=== PATIENT | female | born 1960 | race Caucasian/White ===

== ENCOUNTER 2020-03-08 13:59 | Emergency (ER) | payer OTHER ==
[~2020-03-08] VITALS: Ht 154.9 cm; Wt 61.2 kg
[~2020-03-08 13:59] MED LIST: AMOX-426 PO; HUM10VIA SQ; INSU100V9 SQ; LACT1CAP57 PO; LEVO25TA7 PO; LORA-259 PO; METR500T PO
[2020-03-08 14:05] VITALS: BP_SYST 179
[2020-03-08] MEDS ORDERED: NACL 0.9% 1,000 ML IV ONE (14:33)
[2020-03-08 14:44] LABS: BILIRUBIN,URINE NEGATIVE (NEGATIVE); BLOOD, URINE NEGATIVE (NEGATIVE); CLARITY/URINE CLEAR (CLEAR); COLOR,URINE YELLOW (YELLOW); GLUCOSE,URINE NEGATIVE (NEGATIVE); KETONES,URINE NEGATIVE (NEGATIVE); LEUKOCYTE ESTERASE ,URINE NEGATIVE (NEGATIVE); NITRITE, URINE NEGATIVE (NEGATIVE); PROTEIN URINE NEGATIVE (NEGATIVE); UROBILINOGEN,URINE 0.2 (0.2-1.0)
[2020-03-08] MEDS ORDERED: ONDANSETRON HCL 4 MG/2 ML VIAL IVP ONE (14:45)
[2020-03-08] MEDS ORDERED: KETOROLAC TROMETHAMINE 30 MG VIAL IVP ONE (14:45)
[2020-03-08 15:20] LABS: BASOPHILS # (AUTO) 0.2 K/uL (0.0-0.2); BASOPHILS % (AUTO) 1.7 % (0.0-2.0); EOSINOPHILS # (AUTO) 0.3 K/uL (0.0-0.4); EOSINOPHILS % (AUTO) 2.6 % (0.0-4.0); HEMATOCRIT 45.1 % (36-48); HEMOGLOBIN 15.6 g/dL (12.0-16.0); LYMPHOCYTES % (AUTO) 31.2 % (20.5-51.5); MEAN CORPUSCULAR HEMOGLOBIN 32 pg (27-31); MEAN CORPUSCULAR HGB CONC 35 % (32-36); MEAN CORPUSCULAR VOLUME 94 fL (79.0-98.0); MONOCYTES # (AUTO) 0.7 K/uL (0.0-1.0); MONOCYTES % (AUTO) 6.9 % (1.7-9.3); NEUTROPHILS # (AUTO) 5.6 K/uL (1.8-7.7); NEUTROPHILS % (AUTO) 57.6 % (40.0-70.0); PLATELET COUNT (AUTO) 339 K/uL (130-430); RED BLOOD CELL COUNT(AUTO) 4.82 MIL/uL (4.2-6.2); RED CELL DISTRIBUTION WIDTH 12.6 % (9.0-15.0); WHITE BLOOD COUNT (AUTO) 9.7 K/uL (4.8-10.8)
[2020-03-08 15:36] LABS: CALCIUM 9.2 mg/dL (8.4-11.0); CREATININE 1.39 mg/dL (0.55-1.30); POTASSIUM 3.6 mmol/L (3.5-5.1)
[2020-03-08 15:47] LABS: ALBUMIN 4.1 g/dL (3.4-4.8); TOTAL BILIRUBIN 0.4 mg/dL (0.0-1.0)
[2020-03-08] MEDS ORDERED: MECLIZINE HCL 25 MG TABLET (ANITVERT) PO ONE (16:30)
[2020-03-08 17:44] VITALS: BP_SYST 132
== END 2020-03-08 17:44 | disposition home or self-care (01) ==
LOC: SED 13:59
DX: R10.2 Pelvic and perineal pain (principal); R42 Dizziness and giddiness; E03.9 Hypothyroidism, unspecified; E11.9 Type 2 diabetes mellitus without complications; Z79.899 Other long term (current) drug therapy; Z79.4 Long term (current) use of insulin
CPT/HCPCS: 36415; 70450; 76830; 76857; 80053; 81003; 85025; 96361; 96374; 96375; 99285; J1885; J2405; J7030; J8597

== ENCOUNTER 2020-03-26 18:48 | Emergency (ER) | payer OTHER ==
[~2020-03-26] VITALS: Ht 154.9 cm; Wt 61.7 kg
[2020-03-26 18:57] VITALS: BP_SYST 125
--- NOTE | 2020-03-26 19:01 | NUR ---
Ambulated to bed 3
--- NOTE | 2020-03-26 19:39 | NUR ---
pt a&o x4 from home c/o of epigastric abdominal pain radiating right side of abdomen and towards back that started about a week ago. pt rates current pain 6 out of 10, states it comes and goes and has been increasing in occurence. pt reports nausea and loose bowel movements. pt denies vomiting, diarrhea, constipation, problems urinating, fever, chills.
--- NOTE | 2020-03-26 19:40 | NUR ---
ER Dr. Harrell at bedside examining patient.
[2020-03-26] MEDS ORDERED: MORPHINE 2 MG/ML INJ. SYRINGE IVP ONE (19:45)
[2020-03-26] MEDS ORDERED: ONDANSETRON HCL 4 MG/2 ML VIAL IVP ONE ×2 (19:45→21:30)
[2020-03-26] MEDS ORDERED: NACL 0.9% 1,000 ML IV ONE (19:45)
--- NOTE | 2020-03-26 19:54 | NUR ---
# 20 gauge angiocath placed to LFA. Use of asceptic technique. Opsite placed over site. Blood return noted. Blood for lab drawn from site. Flushed with 10 cc of normal saline. No evidence of infiltration noted. Patient tolerated well.
[2020-03-26 20:08] LABS: BASOPHILS # (AUTO) 0.1 K/uL (0.0-0.2); BASOPHILS % (AUTO) 1.1 % (0.0-2.0); EOSINOPHILS # (AUTO) 0.4 K/uL (0.0-0.4); HEMATOCRIT 43.3 % (36-48); LYMPHOCYTES # (AUTO) 3.3 K/uL (1.0-5.5); LYMPHOCYTES % (AUTO) 36.2 % (20.5-51.5); MEAN CORPUSCULAR HEMOGLOBIN 33 pg (27-31); MEAN CORPUSCULAR HGB CONC 35 % (32-36); MEAN CORPUSCULAR VOLUME 94 fL (79.0-98.0); MONOCYTES # (AUTO) 0.8 K/uL (0.0-1.0); MONOCYTES % (AUTO) 8.3 % (1.7-9.3); NEUTROPHILS # (AUTO) 4.6 K/uL (1.8-7.7); NEUTROPHILS % (AUTO) 50.4 % (40.0-70.0); PLATELET COUNT (AUTO) 351 K/uL (130-430); RED BLOOD CELL COUNT(AUTO) 4.62 MIL/uL (4.2-6.2); RED CELL DISTRIBUTION WIDTH 12.6 % (9.0-15.0); WHITE BLOOD COUNT (AUTO) 9.1 K/uL (4.8-10.8)
[2020-03-26 20:10] LABS: BILIRUBIN,URINE NEGATIVE (NEGATIVE); BLOOD, URINE NEGATIVE (NEGATIVE); CLARITY/URINE CLEAR (CLEAR); COLOR,URINE YELLOW (YELLOW); GLUCOSE,URINE NEGATIVE (NEGATIVE); KETONES,URINE NEGATIVE (NEGATIVE); LEUKOCYTE ESTERASE ,URINE NEGATIVE (NEGATIVE); NITRITE, URINE NEGATIVE (NEGATIVE); PROTEIN URINE NEGATIVE (NEGATIVE); UROBILINOGEN,URINE 0.2 (0.2-1.0)
--- NOTE | 2020-03-26 20:10 | NUR ---
patient refused morphine 2mg IVP at this time. aware.
[2020-03-26] MEDS ORDERED: PANTOPRAZOLE SODIUM 40 MG/VIAL (PROTONIX) IVP ONE (20:15)
--- NOTE | 2020-03-26 20:15 | NUR ---
Patient transported to radiology via wheelchair, accompanied by staff.
[2020-03-26 20:22] LABS: CREATININE 1.23 mg/dL (0.55-1.30); POTASSIUM 3.6 mmol/L (3.5-5.1)
[2020-03-26 20:28] LABS: ALBUMIN 3.8 g/dL (3.4-4.8); TOTAL BILIRUBIN 0.3 mg/dL (0.0-1.0)
--- NOTE | 2020-03-26 20:35 | NUR ---
patient returned from radiology, placed on engine monitor.
[2020-03-26] MEDS ORDERED: MAGNESIUM CITRATE 300 ML ORAL SOLUTION PO ONE (21:15)
[2020-03-26] MEDS ORDERED: KETOROLAC TROMETHAMINE 30 MG VIAL IVP ONE (21:30)
--- NOTE | 2020-03-26 21:36 | NUR ---
patient medicated per md orders. pt tolerated well.
[2020-03-26 22:05] VITALS: BP_SYST 112
--- NOTE | 2020-03-26 22:05 | NUR ---
Patient given written and verbal discharge instructions and verbalizes understanding. ER MD discussed with patient the results and treatment provided. Patient in stable condition. ID arm band removed. IV catheter removed intact and dressing applied, no active bleeding. No Rx given. Patient educated on pain management and to follow up with PMD. Pain Scale 3/10. Opportunity for questions provided and answered. Medication side effect fact sheet provided.
== END 2020-03-26 22:05 | disposition home or self-care (01) ==
LOC: SED 18:48
DX: K59.00 Constipation, unspecified (principal); R10.13 Epigastric pain; E11.9 Type 2 diabetes mellitus without complications; E03.9 Hypothyroidism, unspecified; Z79.899 Other long term (current) drug therapy; Z79.82 Long term (current) use of aspirin
CPT/HCPCS: 36415; 74176; 80053; 81003; 83605; 83690; 85025; 96361; 96374; 96375; 96376; 99284; C9113; J1885; J2405; J7030; J2270

== ENCOUNTER 2020-12-05 19:34 | Emergency (ER) | payer OTHER ==
[~2020-12-05] VITALS: Ht 154.9 cm; Wt 61.2 kg
[2020-12-05 19:38] VITALS: BP_SYST 134
[2020-12-05 19:58] LABS: BILIRUBIN,URINE NEGATIVE (NEGATIVE); BLOOD, URINE 2+ (NEGATIVE); COLOR,URINE YELLOW (YELLOW); GLUCOSE,URINE 2+ (NEGATIVE); KETONES,URINE NEGATIVE (NEGATIVE); LEUKOCYTE ESTERASE ,URINE 3+ (NEGATIVE); NITRITE, URINE POSITIVE (NEGATIVE); PROTEIN URINE NEGATIVE (NEGATIVE); UROBILINOGEN,URINE 0.2 (0.2-1.0)
[2020-12-05 20:00] LABS: CLARITY/URINE HAZY (CLEAR)
--- NOTE | 2020-12-05 20:05 | NUR ---
Came in ER ambulatory from home this 60 year old female, AAOX4, breathing spontaneoulsy at room air, not in distress noted. With CHIEF COMPLAINTS of pelvic, right flank pain for 2-3 days and worsened today. Histpry of Hypertension, Diabetes on insulin, s/p appendectomy 30yrs ago. Vital signs stable.
[2020-12-05 20:22] LABS: BACTERIA,URINE MANY /HPF (None Seen); WBC,URINE >100 /HPF (0-3)
[2020-12-05 20:23] LABS: MUCUS,URINE 1+ /LPF (None Seen)
--- NOTE | 2020-12-05 21:19 | NUR ---
Seen and examined by Dr. Pal, ER Attending
[2020-12-05] MEDS ORDERED: SULF1TAB48 PO (21:24)
[2020-12-05] MEDS ORDERED: cefTRIAXone 1 GM in LIDOCAINE 1%, 20 ML MDV 2.1 ML IM ONE (21:30)
--- NOTE | 2020-12-05 21:37 | NUR ---
Ceftriaxone 1gm IM once given at left gluteus, health teaching provided and verbalized understanding. No need for blood culture prior the medication as per Dr. TONEY.
[2020-12-05 21:44] VITALS: BP_SYST 122
--- NOTE | 2020-12-05 21:44 | NUR ---
Patient given written and verbal discharge instructions and verbalizes understanding. ER MD discussed with patient the results and treatment provided. Patient in stable condition. ID arm band removed. Rx of Bactrim DS for 7days given. Patient educated on pain management and to follow up with PMD. Pain Scale 0/10. Opportunity for questions provided and answered. Medication side effect fact sheet provided.
== END 2020-12-05 21:44 | disposition home or self-care (01) ==
LOC: SED 19:34
DX: N39.0 Urinary tract infection, site not specified (principal); E11.9 Type 2 diabetes mellitus without complications; Z79.4 Long term (current) use of insulin; Z79.899 Other long term (current) drug therapy
CPT/HCPCS: 81000; 87086; 96372; 99283; J2001; J0696

== ENCOUNTER 2021-09-08 10:06 | Emergency (ER) | payer OTHER ==
[~2021-09-08] VITALS: Ht 154.9 cm; Wt 63.0 kg
[~2021-09-08 10:06] MED LIST changes: +SULF1TAB48 PO
[2021-09-08 12:00] VITALS: BP_SYST 119
[2021-09-08] MEDS ORDERED: ACETAMINOPHEN 500 MG TABLET PO ONE (14:30)
[2021-09-08] MEDS ORDERED: KETOROLAC TROMETHAMINE 30 MG VIAL IM ONE (16:00)
[2021-09-08] MEDS ORDERED: tessalon perles PO (16:07)
[2021-09-08] MEDS ORDERED: [UNRECOGNIZED DRUG - OTHER] (16:07)
[2021-09-08 16:46] VITALS: BP_SYST 124
== END 2021-09-08 16:44 | disposition home or self-care (01) ==
LOC: SED 10:06
DX: B34.9 Viral infection, unspecified (principal); E78.5 Hyperlipidemia, unspecified; E07.9 Disorder of thyroid, unspecified; E11.9 Type 2 diabetes mellitus without complications; Z20.822 Contact with and (suspected) exposure to COVID-19; Z79.4 Long term (current) use of insulin; Z79.82 Long term (current) use of aspirin
CPT/HCPCS: 36415; 87426; 87804 ×2; 96372; 99283; J1885